=== PATIENT | female | born 1985 | race Caucasian/White ===

== ENCOUNTER 2024-06-25 19:40 | Emergency (ER) | payer MEDICAID, OTHER ==
[~2024-06-25] VITALS: Ht 160 cm; Wt 90.7 kg
[2024-06-25 20:20] VITALS: TEMP 98.2
[2024-06-25] MEDS ORDERED: AZIT250T PO (22:55)
[2024-06-25] MEDS ORDERED: BENZ-13 PO (22:55)
[2024-06-25] MEDS ORDERED: ALBU18HF2 INH (22:56)
[2024-06-25 23:05] VITALS: BP 115/75; O2SAT 100
== END 2024-06-25 23:04 | disposition home or self-care (01) ==
LOC: ER 20:03
DX: J06.9 Acute upper respiratory infection, unspecified (principal); B97.89 Other viral agents as the cause of diseases classified elsewhere; Z87.01 Personal history of pneumonia (recurrent); R07.9 Chest pain, unspecified
CPT/HCPCS: 71045-TC